=== PATIENT | male | born 1985 | race Caucasian/White ===

== ENCOUNTER → 2020-09-18 | Outpatient (CLI) | payer BC ==
[~2020-09-18] MED LIST: ACID REDUCER20 MG PO; DEXTROAMPHETAMI15 MG PO; FISH OIL 1,0001 EAC9 PO; GLUCOSAMINE1000 MG PO; MULTIVITAMINS PO; NORVASC5 MG PO
== END ==
LOC: LAB 08:04
PROVIDERS: ATTEND Orthopaedic Surgery Sports Medicine
DX: Z13.6 Encounter for screening for cardiovascular disorders (principal); I25.10 Atherosclerotic heart disease of native coronary artery without angina pectoris; E78.00 Pure hypercholesterolemia, unspecified

== ENCOUNTER 2020-09-24 07:29 | Day surgery (SDC) | payer BC, OTHER ==
[~2020-09-24] VITALS: Ht 188 cm; Wt 102.5 kg
--- NOTE | 2020-09-24 08:30 | EKG ---
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1985 Requested By: Josh Mcguire Order Number: [id number] : Dakota Jackson Measurements Intervals [place] Rate: 86 P: -17 MN: 150 QRS: -13 QRSD: 103 T: 24 QT: 368 QTc: 440 Interpretive Statements Sinus rhythm Poor R-wave progression V1-3 No previous ECG available for comparison Electronically Signed On 09-24-2020 8:30:43 [employer]ETARY by Dakota Jackson [email or web address] <ELECTRONICALLY SIGNED> By: Dakota Jackson MD, [facility] 09/24/20 0830 1 1 Dakota Jackson MD, FACC /EPI
[2020-09-24 08:53] VITALS: BP 132/95
[2020-09-24 12:18] VITALS: BP 132/95
--- NOTE | 2020-09-25 10:17 | O ---
[address] [address] OPERATIVE REPORT Name: CHANDANA PEÑA Room #: DEP [facility]..#: [id number] Admission: 09/24/20 Attend Phys: Josh Mcguire MD Discharge: 09/24/20 Date of : [birth year] Report #: [id number] THIS REPORT FOR: cc: Elias Donahue MD, Bruce H. MD McCabe,Josh Serrano MD ~ DATE OF SERVICE: 09/24/2020 SERVICE: Orthopedics. FACILITY: [facility]. SURGEON: Josh Mcguire MD PUBLICITY AGENT: Tamiko Paez NP. INDICATION FOR PUBLICITY AGENT: Extremity positioning, suture management, arthroscope management, assistance with the repair. PREOPERATIVE DIAGNOSES: 1. Left hip pain. 2. Left hip femoroacetabular impingement. 3. Left hip labral tear. POSTOPERATIVE DIAGNOSES: 1. Left hip pain. 2. Left hip femoroacetabular impingement. 3. Left hip labral tear. 4. Left hip acetabular chondromalacia. PROCEDURES: 1. Left hip arthroscopic labral repair. 2. Left hip arthroscopic Cam osteochondroplasty. 3. Left hip arthroscopic subspine decompression. COMPLICATIONS: None. DRAINS: None. SPECIMENS: None. ANESTHESIA: General with regional. FINDINGS: [address] [address] OPERATIVE REPORT Name: CHANDANA PEÑA Room #: DEP [facility]#: [id number] Admission: 09/24/20 Attend Phys: Josh Mcguire MD Discharge: 09/24/20 Date of : [birth year] Report #: [id number] 1. Wishon CinchLock suture anchor x 3 for labral repair. 2. Chondral labral junction disruption treated with limited chondroplasty. There were no areas of full-thickness cartilage loss noted. This was in the acetabular region. 3. Large Cam deformity, treated with Cam osteoplasty. 4. Capsular repair with #2 Vicryl x 4. 5. Prominent anterior-inferior iliac spine causing extraarticular impingement, which required additional capsular dissection and bony resection with the bur on the acetabular side of the hip. HISTORY: The patient is a gentleman with history of well over a year's worth of bilateral left hip pain that has been treated conservatively during this time. He has diagnosis of femoroacetabular impingement, pain with impingement testing, and decreased internal rotation. History and physical exam findings consistent with the diagnosis. His preoperative x-rays showed a maximum alpha angle of approximately 65 degrees with a small crossover sign secondary to a prominent anterior-inferior iliac spine. The Tonnis grade is 0. The growth plates are closed. The preoperative MRI showed anterior labral tear on the left hip. He had positive pain response with intra-articular injection and failed conservative measures including rest, activity modifications, physical therapy, oral medicines modalities and injection, and ultimately wished to move forward with definitive surgical treatment, so he could return to his ADLs including his athletic and fitness activities without pain. Risks, benefits, alternatives, and indications for surgery discussed with him in detail. Risks include, but not limited to, pain, bleeding, infection, injury to nerves or blood vessels, persistent pain despite surgical intervention, failure of any repairs, progression of preexisting chondral injury, stiffness, need for further surgery as well as complications related to anesthesia up to and including mortality. Despite the risks, he wished to proceed. PROCEDURE IN DETAIL: After the left lower extremity was correctly identified in the preoperative holding area as the operative extremity, the patient was taken to the operating room where general anesthesia was induced without complication. He was padded appropriately. Prophylactic antibiotics were administered at appropriate time. Left leg was prepped and draped in standard sterile fashion after we assess the extent of the Cam deformity evaluating the femoral head and neck junction on x-ray. Left hip was prepped and draped. A time-out procedure was performed. Traction was applied. Standard anterolateral viewing portal was established followed by mid anterior working portal. There was some erythema and synovitis of the capsule. This will be the indication for continuous passive motion machine usage postoperatively in order to reduce the risk of scarring and adhesions, as these can be reasons for reoperation in this patient population. Transverse capsulotomy was performed. Diagnostic arthroscopy revealed the above [address] [address] OPERATIVE REPORT Name: CHANDANA PEÑA Room #: DEP [facility].R.#: [id number] Admission: 09/24/20 Attend Phys: Josh Mcguire MD Discharge: 09/24/20 Date of : 89 Report #: [id number] findings. Capsule was reflected off the dorsal side of the labrum allowing access to the acetabular side of the pathology. He did not have rim over coverage, so no rim resection was performed. The bur was used to gently decorticate the acetabular rim to create a fresh bleeding surface for labral re-fixation and then attention was turned towards the subspine region where some additional capsular dissection was performed on the medial and lateral aspect of the anterior-inferior iliac spine where it was sitting directly adjacent to the acetabular rim, which corresponded to the location of the apex of the labral tear. The bur was used to perform a subspine decompression in typical fashion using x-ray for assistance and then we proceeded with labral repair. Total of 3 Wishon CinchLock suture anchors were applied, the first 2 through the mid anterior portal and second through the anterolateral portal, which provided good compression of the labrum against the acetabular rim. The labrum was probed and found to be stable. The chondral labral junction disruption had started some chondral peel back and this was treated with debridement with a biter and then also with the shaver. Majority of the pathology was superficial fraying and was treated with a shaver. There was no full-thickness lesion. There was a small area of approximately 50% chondral injury. After this was completed, traction was let down. Hip was flexed up. Attention was turned towards the peripheral compartment. The transverse capsulotomy was extended down the neck in a T-fashion. The C-arm was used to identify the Cam and then the bur was used to perform a Cam osteoplasty. I removed the instruments, brought C-arm back in and assessed the resection, and I identified some additional bone over the shoulder. Ultimately, the extended Cam deformity was from the -10 degree position [address] the way to about the 90-degree position and was quite significant. Instruments were placed back into the hip. The Cam osteoplasty was completed. Then, the bony debris was once again lavaged out of the hip. The instruments were removed. C-arm was brought in. I assessed the resection. At this point, I was happy with the appearance of the Cam osteoplasty. Instruments were placed back in the hip. Final lavage was performed. T-shaped capsulotomy was closed with a total of four #2 Vicryl sutures. Instruments were removed. Portal sites were closed. Sterile dressing was applied. The patient was awakened from anesthesia and taken to recovery room in stable condition. No complications. All counts were correct. <ELECTRONICALLY SIGNED> By: Josh Mcguire MD 09/25/20 1017 1428 1458 Josh Mcguire MD /nt
== END 2020-09-24 13:45 | disposition home or self-care (01) ==
LOC: TBA 07:29 → OR 07:29 → TBA 07:30 → OR 11:05
PROVIDERS: ATTEND Orthopaedic Surgery Sports Medicine
DX: M25.552 Pain in left hip (principal); M25.852 Other specified joint disorders, left hip; S73.102A Unspecified sprain of left hip, initial encounter; M94.252 Chondromalacia, left hip; I10 Essential (primary) hypertension; J45.909 Unspecified asthma, uncomplicated; F17.210 Nicotine dependence, cigarettes, uncomplicated; K21.9 Gastro-esophageal reflux disease without esophagitis; Z98.890 Other specified postprocedural states; Z79.899 Other long term (current) drug therapy; X58.XXXA Exposure to other specified factors, initial encounter; Y93.89 Activity, other specified; Y92.89 Other specified places as the place of occurrence of the external cause; Y99.8 Other external cause status
CPT/HCPCS: 50010; 50101; 50386; 51320; 51538; 52001; 52282; 52304; 56524; 56527; 57092; 57103; 58273; 58274; 62110; 62900; 70005

== ENCOUNTER → 2020-11-07 | Outpatient (CLI) | payer BC | LOC: LAB 14:01 | PROVIDERS: ATTEND Orthopaedic Surgery Sports Medicine | DX: Z01.812 Encounter for preprocedural laboratory examination (principal); Z20.822 Contact with and (suspected) exposure to COVID-19 ==

== ENCOUNTER 2020-11-12 06:16 | Day surgery (SDC) | payer BC ==
[~2020-11-12] VITALS: Ht 188 cm; Wt 102.1 kg
[2020-11-12 07:41] VITALS: BP 143/99
[2020-11-12 11:05] VITALS: BP 143/99
--- NOTE | 2020-11-12 13:13 | O ---
[address] [address] OPERATIVE REPORT Name: CHANDANA PEÑA Room #: DEP [facility].#: [id number] Admission: 11/12/20 Attend Phys: Josh Mcguire MD Discharge: 11/12/20 Date of : 89 Report #: [id number] THIS REPORT FOR: cc: Elias Donahue MD, Bruce H. MD McCabe,Josh Serrano MD ~ DATE OF SERVICE: 11/12/2020 SERVICE: Orthopedics. FACILITY: [facility]. SURGEON: Josh Mcguire MD FRUIT WASHER: Tamiko Paez NP. INDICATION FOR FRUIT WASHER: Extremity positioning, suture management, arthroscope management, assistance with repair. PREOPERATIVE DIAGNOSES: 1. Right hip pain. 2. Right hip femoroacetabular impingement. 3. Right hip labral tear. POSTOPERATIVE DIAGNOSES: 1. Right hip pain. 2. Right hip femoroacetabular impingement. 3. Right hip labral tear. 4. Right hip acetabular chondromalacia. PROCEDURES: 1. Right hip arthroscopic labral repair. 2. Right hip arthroscopic Cam osteochondroplasty. 3. Right hip arthroscopic subspine decompression. 4. Right hip arthroscopic acetabular chondroplasty. COMPLICATIONS: None. DRAINS: None. SPECIMENS: None. ANESTHESIA: General with regional. FINDINGS: [address] [address] OPERATIVE REPORT Name: CHANDANA PEÑA Room #: DEP [facility]#: [id number] Admission: 11/12/20 Attend Phys: Josh Mcguire MD Discharge: 11/12/20 Date of : 89 Report #: [id number] 1. Full thickness detached anterior labral tear, treated with labral repair with [employer] CinchLock suture anchor x 2. 2. Focal prominent anterior inferior iliac spine causing extraarticular subspine impingement requiring additional soft tissue dissection and bony work to address this source of additional impingement. 3. Very large prominent Cam deformity extending from the -15 degree position all the way to the 90-degree position with maximum alpha angle of approximately 85 degrees. This was treated with Cam osteoplasty. 4. Chondromalacia of the acetabular rim at the chondral labral junction with partial thickness detachment of the cartilage extending on an arc of approximately 90 degrees of the acetabulum corresponding with the Cam deformity. There was no apparent grade 4 lesion. This was treated with chondroplasty. 5. Capsular repair with #2 Vicryl x 4. HISTORY: The patient is a 34-year-old gentleman with history of bilateral hip pain that had affected his activities of daily living. He had findings consistent with impingement with positive impingement sign, decreased internal rotation, mechanical symptoms and worsening pain despite extensive conservative treatment to include rest, activity modifications, physical therapy, oral medicines and injection. He had temporary, but insufficient relief with the injection. He had x-rays, which were consistent with combined-type femoroacetabular impingement. The Tonnis grade is 0. The alpha angle was approximately 85 degrees. There was a small crossover sign secondary to a prominent anterior inferior iliac spine causing extraarticular impingement and then the MRI showed a labral tear. He had successful SIMEON treatment on his left hip and was indicated for similar treatment on the right hip, which we performed today. Risks, benefits, alternatives, and indication of surgery discussed with him in detail. Risks include but not limited to pain, bleeding, infection, injury nerves or blood vessels, persistent pain despite surgical intervention, failure of any repairs, progression of preexisting chondral injury, stiffness, need for further surgery as well as complications related to anesthesia. PROCEDURE IN DETAIL: After right lower extremity was correctly identified in the preoperative holding as operative extremity, the patient underwent placement of regional nerve block. He was then taken to the operating room where general anesthesia was induced without complications. He was padded appropriately. Prophylactic antibiotics were administered at appropriate time. C-arm was used to assess the extent of the Cam deformity, he had a large ridge that extended over the sagittal midline just proximal to the vessels and all the way across to the anterior aspect of the hip in the 90-degree position. The right hip was then prepped and draped in standard sterile fashion and timeout procedure performed. [address] [address] OPERATIVE REPORT Name: CHANDANA PEÑA Room #: DEP [facility] M.R.#: [id number] Admission: 11/12/20 Attend Phys: Josh Mcguire MD Discharge: 11/12/20 Date of : 89 Report #: [id number] Traction was applied. A standard anterolateral viewing portal was established under fluoroscopy. Then, a mid anterior working portal was established under fluoroscopic and arthroscopic visualization. There is erythema and capsulitis and synovitis present, which will be the indication for continuous passive motion machine usage postoperatively in order to reduce the risk of scarring and adhesions as these can be reasons for reoperation in this patient population. Transverse capsulotomy was performed. The femoral head articular cartilage had a superficial geometric pattern to it. That was noted, but there were no signs of significant chondromalacia and there were no grade 3 or grade 4 articular cartilage lesions. There was an obvious detached anterior labral tear and the capsule was reflected off the dorsal side of the labrum allowing access to the acetabular rim. The bur was used to gently decorticate the acetabular rim to create a fresh bleeding surface for labral refixation. He also had extraarticular subspine impingement. There was no rim resection performed because this is not a rim over coverage scenario; however, to address the subspine impingement, the cautery and shaver were used to expose the anterior inferior iliac spine base by resecting a limited amount of capsule here and then a bur was used to perform a subspine recession in a typical fashion. We then proceeded with labral repair with total of 2 Kirsten CinchLock suture anchors. At this point, the chondral labral junction injury could be visualized very well. This was a partial thickness detachment from the [address] o'[address] position all the way to approximately the 10 o'clock position on the right hip clock face, this was debrided with the biter and then the shaver was used to complete the chondroplasty. The chondral debris was then lavaged out of the hip and traction was let down. The hip was flexed up. Attention was turned towards peripheral compartment. The transverse capsulotomy was extended down the neck in a T fashion. We started with the hip in flexion. We then progressively worked the hip into extension and internal rotation in order to follow this large Cam deformity all around the top shoulder. The bur was used to perform a Cam osteoplasty in typical fashion. We removed the instruments, brought C-arm in, assessed the resection, identified some additional bone that needed to be resected and placed the instruments back in the hip and then completed the Cam osteoplasty in typical fashion until adequate resection of the Cam had been achieved. The bony debris was lavaged out of the hip. I removed the instruments, brought C-arm in again and assessed the resection. I was happy with the appearance of the Cam osteoplasty after completion of this dural portion of the procedure. Instruments were placed back in the hip. The bony debris was lavaged one final time and then the T-shaped capsulotomy was closed with total of four #2 Vicryl sutures. Instruments were removed. Portal sites were closed. Sterile dressing was applied. The patient [address] [address] OPERATIVE REPORT Name: CHANDANA PEÑA Room #: DEP [facility].#: [id number] Admission: 11/12/20 Attend Phys: Josh Mcguire MD Discharge: 11/12/20 Date of : 89 Report #: [id number] was awakened from anesthesia and taken to recovery room in stable condition. No complications. All counts were correct. <ELECTRONICALLY SIGNED> By: Josh Mcguire MD 11/12/20 1313 1038 1055 Josh Mcguire MD /nt
== END 2020-11-12 11:50 | disposition home or self-care (01) ==
LOC: OR 06:16 → TBA 06:17 → OR 11:50
PROVIDERS: ATTEND Orthopaedic Surgery Sports Medicine
DX: M25.551 Pain in right hip (principal); M25.851 Other specified joint disorders, right hip; S73.101A Unspecified sprain of right hip, initial encounter; M94.251 Chondromalacia, right hip; I10 Essential (primary) hypertension; J45.909 Unspecified asthma, uncomplicated; F17.210 Nicotine dependence, cigarettes, uncomplicated; K21.9 Gastro-esophageal reflux disease without esophagitis; Z98.890 Other specified postprocedural states; Z79.899 Other long term (current) drug therapy; X58.XXXA Exposure to other specified factors, initial encounter; Y93.89 Activity, other specified; Y92.89 Other specified places as the place of occurrence of the external cause; Y99.8 Other external cause status
CPT/HCPCS: 50010; 50101; 50386; 51320; 51538; 52001; 52282; 52304; 52313; 56524; 56527; 57092; 57103; 58273; 58274; 58557; 58558; 58559; 58560; 58561; 58562; 58563; 58564; 62110; 62900; 70005